=== PATIENT | female | born 1940 | race Caucasian/White ===

== ENCOUNTER 2025-07-02 18:07 | Emergency (ER) | payer MEDICARE ==
[~2025-07-02] VITALS: Ht 167.6 cm; Wt 68.0 kg
[2025-07-02] MEDS: LIDOCAINE 1%-EPI 1:100,000 20 ML VIAL TP ONE (18:30)
[2025-07-02 19:53] VITALS: BP 120/77; TEMP 98; O2SAT 99
== END 2025-07-02 19:54 | disposition home or self-care (01) ==
LOC: ER 18:10
DX: S01.01XA Laceration without foreign body of scalp, initial encounter (principal); I10 Essential (primary) hypertension; R51.9 Headache, unspecified; W01.0XXA Fall on same level from slipping, tripping and stumbling without subsequent striking against object, initial encounter; Y93.89 Activity, other specified; Y92.009 Unspecified place in unspecified non-institutional (private) residence as the place of occurrence of the external cause; Y99.9 Unspecified external cause status
CPT/HCPCS: 70450-TC